=== PATIENT | male | born 1970 | race Caucasian/White ===

== ENCOUNTER 2024-04-17 14:56 | Emergency (ER) | payer BC, SELFPAY ==
[2024-04-17 14:58] VITALS: BP 166/106; PULSE 100; RESP 18; TEMP 36.7; O2SAT 99; BMI 35.6
--- NOTE | 2024-04-17 15:09 | PC.NURSE ---
DR NOBLE AT BEDSIDE
--- NOTE | 2024-04-17 15:10 | XR_ITS ---
FINAL REPORT CLINICAL HISTORY: cough x 3 weeks COMPARISON: None FINDINGS: Two views of the chest were obtained. The heart size and pulmonary vascularity are within normal limits. The mediastinum is normal. There is bronchial wall thickening, consistent with bronchitis. There is no pneumothorax. The bony thorax is intact. IMPRESSION: Bronchial wall thickening, consistent with bronchitis. Reviewed, Interpreted and Dictated by Donato Rodríguez III, MD Transcribed by Olga Bustillos Authenticated and [facility]
--- NOTE | 2024-04-17 15:14 | ED_ITS ---
Discharge Plan Disposition Patient Disposition: Home, Self-Care Condition: Good Prescriptions Prescriptions: New lisinopril 40 mg tablet 40 mg PO DAILY Qty: 30 0RF amoxicillin-pot clavulanate 875-125 mg tablet 1 tab PO BID Qty: 20 0RF fluticasone propionate [Flonase Allergy Relief] 50 mcg/actuation spray,suspension 1 spray intranasal BID Qty: 16 0RF Rx Instructions: administer into each nostril cetirizine [Zyrtec] 10 mg tablet 10 mg PO DAILY Qty: 30 0RF Referrals Follow up/Referrals: Provider,Referral, [Primary Care Provider] - See instructions Activity Restrictions/Add. Instructions Additional Instructions/Restrictions: You were evaluated in the emergency department today. Please machine pecan picker your prescriptions at the pharmacy. Use caution when taking wyup-qtq-[id number] cold medications, such as Mucinex, as they can cause anxiety and worsen high blood pressure. supervisor feed mill your medication for blood pressure and take it daily as prescribed. Follow-up closely with your primary care provider Clinical Impressions Clinical Impression: Anxiety, Bronchitis Stand Alone Forms Stand Alone Forms: Work/School Release Instructions Patient Instructions: DI for Acute Bronchitis, DI for Anxiety -- Adult Print Language Print Language: Cook Islander Discharge ED Provider: Landy Myers General Adult HPI General Chief complaint: Shortness of Breath/Dyspnea Stated complaint: cough anxiety Time Seen by Provider: 04/17/24 15:06 History of Present Illness HPI narrative: This patient is a 54-year-old male who has a history of hypertension and hyperlipidemia presenting to the emergency department for evaluation with concern for anxiety. Patient reports that he has had a cough and congestion for about 3 weeks now and has been treating at home with zlsa-lox-jwinbhb medications, including Mucinex. He is not sure if it is Mucinex D or just regular Mucinex. He also had [employer] energy drinks this morning and notes that he is been feeling very anxious. He notes that he just feels like something is not right. He keeps saying that he thinks he may be over exaggerating, but he just feels very anxious. He has not seen anyone previously for the cough or congestion. No recent fevers. No other concerns noted at this time. Related Data Previous Rx's ?Medication ?Instructions ?Recorded amoxicillin 875 mg-potassium 1 tab PO BID #20 tabs 04/17/24 clavulanate 125 mg tablet cetirizine 10 mg tablet (Zyrtec) 10 mg PO DAILY #30 tabs 04/17/24 fluticasone propionate 50 1 spray intranasal BID #16 grams 04/17/24 mcg/actuation nasal spray,suspension (Flonase Allergy Relief) lisinopril 40 mg tablet 40 mg PO DAILY #30 tabs 04/17/24 Allergies Allergy/AdvReac Type Severity Reaction Status Date / Time No Known Allergies Allergy Verified 04/17/24 15:15 [facility] Disclaimer: The information contained in this section may have been updated after the patient was seen, as this information can be updated by other users. Social History Smoking Status: Current some day smoker alcohol intake: never current occupational status: employed Travel in the last 8 weeks: None ROS Obtained: Yes All systems reviewed & no additional complaints except as documented Physical Exam General General appearance: alert, in no apparent distress and anxious Comment: Hoarse voice, dry cough Head Head exam: atraumatic and normocephalic Eye Eye exam: Present normal appearance, PERRL and EOMI ENT ENT exam: Present normal exam, normal oropharynx, mucous membranes moist and normal external ear exam Neck Neck exam: Present normal inspection, full ROM and trachea midline; Absent tenderness Chest Chest inspection: Present normal inspection and symmetric chest wall rise; Absent tenderness Respiratory Respiratory exam: Present normal lung sounds bilaterally; Absent respiratory distress, wheezes, stridor or accessory muscle use Cardiovascular Cardiovascular exam: Present normal rhythm and tachycardia Abdominal Exam Abdominal exam: Present soft; Absent distention, tenderness or guarding Extremities Exam Extremities exam: Present normal inspection, full ROM and normal capillary refill; Absent tenderness or edema Back Exam Back exam: Present normal inspection and full ROM; Absent tenderness Neurological Exam Neurological exam: Present alert, oriented X3, CN II-XII intact and normal gait; Absent motor sensory deficit Psychiatric Psychiatric exam: Present anxious Skin Skin exam: Present warm and dry Medical Decision Making Medical Records Medical records reviewed: Yes I reviewed the patient's medical records. Screening: Per USPSTF and CDC recommendations, given the prevalence of disease in our region, it is our hospital?s policy to screen for HIV and viral Hepatitis for all patients aged 18 and over and those with ongoing risk factors. Rashid Inquiry Pt receiving controlled substance: No Vital Signs: 04/17/24 14:58 04/17/24 15:30 04/17/24 17:08 Temperature 98.1 F 98.1 F Temperature Source Oral Pulse Rate 97 H 92 H Pulse Rate [Radial] 100 H Respiratory Rate 18 20 Blood Pressure 180/102 H 173/106 H Blood Pressure [Right Arm] 166/106 H Blood Pressure Mean [Right Arm] 126 Blood Pressure Source [Right Arm] Automatic Cuff Blood Pressure Position [Right Arm] Sitting 02 Sat by Pulse Oximetry 99 98 Oxygen Delivery Method Room Air Room Air Room Air Lab Data Lab results reviewed: Yes I reviewed the patient's lab results. Lab Results 04/17/24 15:05: WBC 8.3, RBC 4.45 L, Hgb 14.1, Hct 40.5 L, MCV 91.0, MCH 31.6 H, MCHC 34.7, RDW 12.5, Plt Count 301, MPV 8.1, Neut % (Auto) 65.5, Lymph % (Auto) 26.5, Beckham % (Auto) 6.1, Eos % (Auto) 1.1, Baso % (Auto) 1.0, Neut # (Auto) 5.4, Lymph # (Auto) 2.2, Beckham # (Auto) 0.5, Eos # (Auto) 0.1, Baso # (Auto) 0.1, Sodium 136, Potassium 3.7, Chloride 102, Carbon Dioxide 24, Anion Gap 13.7, BUN 17, Creatinine 0.90, Estimated Creat Clear 163, Estimated GFR 88, Est GFR ( Amer) 106, Glucose 110 H, Calcium 9.7, Magnesium 1.8, Total Bilirubin 0.6, AST 32, ALT 40, Alkaline Phosphatase 78, Troponin I < 0.01, NT-Pro-B Natriuret Pep 77.0, Total Protein 7.9, Albumin 4.6, Globulin 3.3 H, Albumin/Globulin Ratio 1.4, TSH 0.71, Thyroxine (T4) 9.2 04/17/24 15:05 04/17/24 15:05 Orders (Tests/Meds): ED MEDICATIONS Discontinued Medications Generic Name Dose Route Start Last Admin Trade Name Freq PRN Reason Stop Dose Admin Amoxicillin/Clavulanate Potassium 1 each 04/17/24 16:23 04/17/24 16:26 Amoxicillin/Clavulanate Potassium 875/125mg Tablet PO 04/17/24 16:24 1 each ONCE ONE Administration Lisinopril 40 mg 04/17/24 16:23 04/17/24 16:26 Lisinopril 20mg Tablet PO 04/17/24 16:24 40 mg ONCE ONE Administration Lorazepam 0.5 mg 04/17/24 15:17 04/17/24 15:22 Lorazepam 2mg/Ml Vial IV 04/17/24 15:18 0.5 mg ONCE ONE Administration Sodium Chloride 10 ml 04/17/24 15:17 Sodium Chloride 0.9% 10ml Vial IV 05/17/24 15:16 NEEDED PRN to Dilute Lorazepam inj ORDERS Category Date Time Status CXR 2 view (NOT portable) [XR chest 2V] Stat Exams 04/17/24 15:10 Completed BNP [NT Pro Brain Natriuretic Pep.] Stat Lab 04/17/24 15:05 Completed Complete Blood Count Auto Diff Stat Lab 04/17/24 15:05 Completed Comprehensive Metabolic Panel Stat Lab 04/17/24 15:05 Completed MAG [Magnesium] Stat Lab 04/17/24 15:05 Completed T4 (Thyroxine) Stat Lab 04/17/24 15:05 Completed TSH [Thyroid Stimulating Hormone] Stat Lab 04/17/24 15:05 Completed Trop I [Troponin I] Stat Lab 04/17/24 15:05 Completed ECG Data Tracing #1: I reviewed this ECG and interpreted as documented below: Normal sinus rhythm with a ventricular rate of 96. No acute ST changes concerning for ischemia. Normal intervals. ECG initial impression date: 04/17/24 ECG initial impression time: 15:34 Medical Decision Narrative: In summary, this patient is a 54-year-old male presenting to the Emergency Department for evaluation of persistent cough and congestion for 3 weeks as well as anxiety that started today. Differential diagnoses considered include but are not limited to over caffeination, anxiety, panic attack, medication adverse reaction, electrolyte derangements, pneumonia, dysrhythmia, ACS. Ruling out the most morbid conditions drove assessment. It should be noted patient's history includes hypertension which is not at goal therapy. he notes he ran out of his lisinopril. This complicates all aspects of care by increasing patient's risk for morbidity. On exam, the patient is sitting upright in bed in no acute distress. He is slightly anxious appearing and has a dry cough with hoarse voice. He is mildly tachycardic and hypertensive. Otherwise, exam is reassuring. Workup included CBC, CMP, troponin, TSH, T4, magnesium, chest x-ray, EKG. Will treat with small dose of Ativan to assess for symptomatic improvement. I independently interpreted chest x-ray prior to the radiologist read and noted no acute focal consolidation or pulmonary edema. Please see their read for final interpretation. Labs were obtained that demonstrated reassuring CBC, reassuring chemistry, negative troponin, normal thyroid studies. On reassessment, patient had good improvement after administration of Ativan. He is feeling better. He continues to be hypertensive, and he states has been out of his lisinopril. I did provide him with a dose and refill this for him. Ultimately, I feel his symptoms were likely a combination of the caffeine that he had, generally feeling unwell, and [id number] medications he had been using as well as being out of his blood pressure medication. Given that he has had the cough and congestion type symptoms for 3 weeks now, it is possible he has a bacterial component of this upper respiratory infection that has developed. Given this, will treat with Augmentin. At this time, patient was deemed to be appropriate for discharge. He was given strict return precautions as well as instructions for close follow-up with primary care. He was discharged after all questions were answered. Critical Care Critical Care Time Critical Care Time: No
[2024-04-17 15:16] LABS: Basophils # 0.1 K/mm3 (0-0.2); Eosinophils # 0.1 K/mm3 (0.0-0.4); Eosinophils % 1.1 % (0.1-12.0); Hematocrit 40.5 % (42.0-52.0); Hemoglobin 14.1 g/dL (14.1-18.0); Lymphocytes # 2.2 K/mm3 (0.7-4.5); Lymphocytes % 26.5 % (10-50); Mean Corpuscular HGB Conc 34.7 g/dL (31.8-35.4); Mean Corpuscular Hemoglobin 31.6 pg (27.0-31.2); Mean Platelet Volume 8.1 fl (7.4-10.4); Monocytes # 0.5 K/mm3 (0.1-1.0); Monocytes % 6.1 % (1.7-9.3); Neutrophils # 5.4 K/mm3 (1.8-7.8); Neutrophils % 65.5 % (37.0-80.0); Platelet Count 301 K/mm3 (142-424); Red Blood Count 4.45 M/mm3 (4.60-6.20); Red Cell Distribution Width 12.5 % (11.5-17.5); White Blood Count 8.3 K/mm3 (4.8-10.8)
--- NOTE | 2024-04-17 15:21 | PC.NURSE ---
PT TO XR
[2024-04-17] MEDS: LORazepam 2MG/ML VIAL 0.5 MG IV (15:22)
[2024-04-17 15:30] VITALS: BP 180/102; PULSE 97; O2SAT 98
[2024-04-17 15:30] LABS: Alanine Aminotransferase 40 U/L (12-78); Albumin Level 4.6 g/dl (3.5-5.0); Albumin/Globulin Ratio 1.4 (1.1-1.8); Alkaline Phosphatase 78 U/L (38-126); Anion Gap 13.7 mEq/L (5-15); Aspartate Amino Transferase 32 U/L (17-59); Bilirubin,Total 0.6 mg/dl (0.2-1.3); Blood Urea Nitrogen 17 mg/dl (9-20); Calcium 9.7 mg/dl (8.4-10.2); Carbon Dioxide 24 mmol/L (22.0-30.0); Chloride 102 mmol/L (98-107); Creatinine Clearance Estimated 163 mL/min (50-200); Estimated Glomerular Filt Rate 88 ml/min (>60); GFR (African American) 106 ML/MIN (>60); Globulin 3.3 g/dL (1.3-3.2); Glucose 110 mg/dl (74-100); Magnesium 1.8 mg/dl (1.6-2.3); Potassium 3.7 mmoL/L (3.5-5.1); Sodium 136 mmol/L (136-145); Total Protein,Serum 7.9 g/dl (6.3-8.2)
--- NOTE | 2024-04-17 15:30 | ECG_ITS ---
APPROVED REPORT Exam: Resting ECG HR:96 bpm ECG Measurements Heart Rate 96 AXES SD 201 P 53 QRSd 94 QRS -16 QT 355 T 28 QTc 409 Conclusion SINUS RHYTHM NORMAL ECG Electronically signed by : RUBEN NOBLE, 04/18/2024 00:07:20
[2024-04-17 15:44] LABS: Troponin I < 0.01 ng/ml (0.00-0.034)
[2024-04-17 15:47] LABS: T4 (Thyroxine) 9.2 ug/dl (5.53-11.0)
[2024-04-17 16:00] LABS: Thyroid Stimulating Hormone 0.71 uIU/mL (0.465-4.68)
[2024-04-17] MEDS: LISINOPRIL 20MG TABLET 40 MG PO (16:26)
[2024-04-17] MEDS: AMOXICILLIN/CLAVULANATE POTASSIUM 875/125MG TABLET 1 EACH PO (16:26)
[2024-04-17 17:08] VITALS: BP 173/106; PULSE 92; RESP 20; TEMP 36.7; O2SAT 98
== END 2024-04-17 17:08 | disposition home or self-care (01) ==
PROVIDERS: Emergency Provider Emergency Medicine
DX: J40 Bronchitis, not specified as acute or chronic (principal); F41.9 Anxiety disorder, unspecified; R05.9 Cough, unspecified; R09.81 Nasal congestion; R06.02 Shortness of breath
CPT/HCPCS: 71046; 80050; 80053; 83735; 83880; 84436; 84443; 84484; 85025; 93005; 96374; 99284; J2060